=== PATIENT | female | born 1985 | race African-American/Black ===

== ENCOUNTER 2016-07-05 15:07 | Emergency (ER) | payer OTHER ==
[2016-07-05 15:12] VITALS: BMI 25.2
[2016-07-05] MEDS ORDERED: ACETAMINOPHEN 500 MG TABLET (FP) PO ONE (16:43)
[2016-07-05] MEDS ORDERED: ACETAMINOPHEN 325 MG TABLET (FP) ONE (16:45)
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
[2016-07-05 16:58] LABS: URINE APPEARANCE CLEAR; URINE BILIRUBIN NEGATIVE (NEGATIVE); URINE BLOOD NEGATIVE (NEGATIVE); URINE COLOR LTYELLOW; URINE GLUCOSE (UA) NEGATIVE (NEGATIVE); URINE KETONE TRACE (NEGATIVE); URINE LEUK ESTERASE NEGATIVE (NEGATIVE); URINE NITRITE NEGATIVE (NEGATIVE); URINE PROTEIN NEGATIVE (NEGATIVE); URINE UROBILINOGEN NEGATIVE E.U./dl (0.2-1.0)
--- NOTE | 2016-07-05 17:38 | PDOC ---
*Physical Exam - Vital Signs Last Vital Signs Temp Pulse Resp BP Pulse Ox 98 F 75 18 115/62 100 07/05/16 15:09 07/05/16 15:09 07/05/16 15:09 07/05/16 15:09 07/05/16 15:09 - Physical Exam Comments: 07/05/16 17:38 The patient was examined by [LABORATORY IMMUNOLOGIST Norma] under my direct supervision. I personally evaluated the patient. I concur with the above findings and the plan of care. ED Treatment Course - ADDITIONAL ORDERS Additional order review: Laboratory Results 07/05/16 16:50 Urine Color Ltyellow Urine Appearance Clear Urine pH 6.0 Urine Protein Negative Urine Glucose (UA) Negative Urine Ketones Trace H Urine Blood Negative Urine Nitrite Negative Urine Bilirubin Negative Urine Urobilinogen Negative Ur Leukocyte Esterase Negative - Medications Given in the ED: ED Medications Discontinued Medications Generic Name Dose Route Start Last Admin Trade Name Caydenq PRN Reason Stop Dose Admin Acetaminophen 975 mg 07/05/16 16:43 07/05/16 16:51 Tylenol - PO 07/05/16 16:44 975 mg ONCE ONE Administration *DC/Admit/Observation/Transfer Diagnosis at time of Disposition: Abdominal trauma, Second trimester - Referrals Referrals: Shannan Nicolas MD [Primary Care Provider] - - Patient Instructions Printed Discharge Instructions: DI for -- Discomforts and Remedies Additional Instructions: -Rest and stay well-hydrated -Take Tylenol as needed for pain -Follow up with your notereader on Friday -Return here for worsening pain, vaginal bleeding or spotting, or any other concerning symptoms - Post Discharge Activity Work/School Note: Back to Work
[2016-07-05 18:34] VITALS: BP 109/61; PULSE 80; TEMP 98.5
== END 2016-07-05 18:43 | disposition home or self-care (01) ==
LOC: JER 15:07
DX: O26.892 Other specified pregnancy related conditions, second trimester (principal); Z3A.15 15 weeks gestation of pregnancy; Y04.2XXA Assault by strike against or bumped into by another person, initial encounter; Y93.89 Activity, other specified; Y92.9 Unspecified place or not applicable; Y99.0 Civilian activity done for income or pay
CPT/HCPCS: 76816-TC; 81003; 99282-25

== ENCOUNTER 2019-03-27 04:19 | Emergency (ER) | payer OTHER ==
[2019-03-27 04:35] VITALS: TEMP 97.6; BMI 23.3
[2019-03-27] MEDS ORDERED: morphine CARPU-JECT 4 MG/1 ML DISP.SYRIN IVPUSH ONE (07:13)
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
[2019-03-27] MEDS ORDERED: morphine SULFATE 4 MG/ML VIAL ONE (07:16)
[2019-03-27] MEDS ORDERED: SODIUM CHLORIDE 0.9% 1000 ML INFUS.BAG IV ONE (07:56)
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
[2019-03-27] MEDS ORDERED: PROPOFOL 200 MG/20 ML VIAL IVPUSH ONE (09:35)
[2019-03-27] MEDS ORDERED: PROPOFOL 20 ML ONE (09:36)
[2019-03-27 12:07] VITALS: BP 116/92; PULSE 80
== END 2019-03-27 11:47 | disposition home or self-care (01) ==
LOC: JER 04:19
PROC: 0RSJXZZ Reposition Right Shoulder Joint, External Approach (ICD-10-PCS; principal; 2019-03-27)
PROC: 3E033NZ Introduction of Analgesics, Hypnotics, Sedatives into Peripheral Vein, Percutaneous Approach (ICD-10-PCS; 2019-03-27)
PROC: 3E023BZ Introduction of Anesthetic Agent into Muscle, Percutaneous Approach (ICD-10-PCS; 2019-03-27)
PROC: 2W3AXYZ Immobilization of Right Upper Arm using Other Device (ICD-10-PCS; 2019-03-27)
DX: S43.014A Anterior dislocation of right humerus, initial encounter (principal); W03.XXXA Other fall on same level due to collision with another person, initial encounter; Y93.89 Activity, other specified; Y92.59 Other trade areas as the place of occurrence of the external cause; Y99.8 Other external cause status
CPT/HCPCS: 23650; 29240; 73030-TC-RT-FY; 73060-TC-RT-FY; 73070-TC-RT-FY; 96374; 96375; 99284-25; J7030

== ENCOUNTER 2019-03-27 15:06 | Emergency (ER) | payer OTHER ==
[2019-03-27 15:13] VITALS: BP 125/70; PULSE 89; TEMP 98.4; BMI 24.7
--- NOTE | 2019-03-27 15:14 | PDOC ---
History of Present Illness - General Chief Complaint: Shoulder Dislocation Stated Complaint: REVISIT Time Seen by Provider: 03/27/19 15:13 History Source: Patient Exam Limitations: No Limitations - History of Present Illness Initial Comments: HPI: 33 y/o female presenting to [facility] ER for repeat imagining of her right shoulder. Pt was discharged from this department this morning after her right shoulder was dislocated and reduced. ED wet read was suggestive for a successful reduction and the pt was discharged. Radiology over-read the film as indeterminate. Pt was called and returned to the ED. Endorsed generalized shoulder pain. Medical Hx: - None Review of Systems: 6 point review of systems completed. All systems negative except as noted above. Physical Examination: Vital signs and nursing notes reviewed. Constitutional- Well-developed, well-nourished adult female in no acute distress but mild obvious discomfort. Head- Normocephalic. No obvious external signs of trauma. Cardiovascular / Chest- Regular rate. Respiratory- Breathing unlabored. Equal chest rise and fall. Neuro- Alert and oriented x4. Moving all four extremities spontaneously. MSK- Right upper extremity immobilized in shoulder immobilizer. Skin- Warm, dry, and intact. Psych- Affect- appropriate. Mood- normal. Speech was non-labored, non- pressured. MDM: Pts repeat radiograph unremarkable for dislocation or fracture. Given Oxycodone for pain relief. Will prescribe short course of Naproxen. Pt encouraged to continue to follow discharge instructions from last discharge. Past History - Past Medical History Allergies/Adverse Reactions: Allergies Allergy/AdvReac Type Severity Reaction Status Date / Time No Known Allergies Allergy Verified 03/27/19 06:53 Home Medications: Ambulatory Orders Naproxen [Naprosyn -] 500 mg PO BID PRN 7 Days #14 tablet 03/27/19 Anemia: No Asthma: No Cancer: No Cardiac Disorders: No CVA: No COPD: No CHF: No Dementia: No Diabetes: No GI Disorders: No Disorders: No HTN: No Hypercholesterolemia: No Kidney Stones: No Liver Disease: No Seizures: No Thyroid Disease: No - Surgical History Abdominal Surgery: No Appendectomy: No Cardiac Surgery: No Cholecystectomy: No Lung Surgery: No Neurologic Surgery: No Orthopedic Surgery: No - Reproductive History (#): 0 Endometriosis: No Uterine Fibroids: No - Immunization History Immunization Up to Date: Yes - Psycho Social/Smoking Cessation Hx Smoking History: Never smoked Have you smoked in the past 12 months: No Number of Cigarettes Smoked Daily: 2 Information on smoking cessation initiated: No 'Breaking Loose' booklet given: 07/26/15 Hx Alcohol Use: No Drug/Substance Use Hx: No Substance Use Type: None Hx Substance Use Treatment: No *Physical Exam - Vital Signs Last Vital Signs Temp Pulse Resp BP Pulse Ox 98.4 F 89 18 125/70 99 03/27/19 15:09 03/27/19 15:09 03/27/19 15:09 03/27/19 15:09 03/27/19 15:09 ED Treatment Course - RADIOLOGY Radiology Studies Ordered: Category Date Time Status SHOULDER-RIGHT [RAD] Stat Radiology 03/27/19 15:13 Ordered Discharge - Discharge Information Problems reviewed: Yes Clinical Impression/Diagnosis: Right shoulder pain Qualifiers: Chronicity: acute Qualified Code(s): M25.511 - Pain in right shoulder Condition: Good Disposition: HOME - Admission No - Additional Discharge Information Prescriptions: Naproxen [Naprosyn -] 500 mg PO BID PRN 7 Days #14 tablet PRN Reason: Pain - Follow up/Referral Referrals: Shannan Nicolas MD [Primary Care Provider] - - Patient Discharge Instructions Patient Printed Discharge Instructions: DI for Shoulder Dislocation Additional Instructions: Thank you for returning to the emergency department for the repeat xray. It did not show a shoulder dislocation. You were given an oxycodone for pain. Do not drink alcohol, drive, or operate heavy machinery for the next 12 hours. I have sent a prescription for a pain medication called Naproxen to your pharmacy. Take as directed on the package insert. Do not exceed the recommended dosage. Do not take with other NSAID medications such as Ibuprofen, Advil, or Motrin. Start with taking the Naproxen every 12 hours. If the pain becomes worse then add Tylenol (Acetaminophen) between doses of Naproxen. An example schedule is as follows: 9:00 am Naproxen 12:00 pm 1000mg Tylenol 6:00 pm 1000mg Tylenol 9:00 pm Naproxen 12:00 am 1000mg Tylenol etc. Please follow up with the orthopedic doctor as described on your other discharge paperwork. Return to the emergency department for new or worsening symptoms. Print Language: LAO - Post Discharge Activity
[2019-03-27] MEDS ORDERED: oxyCODONE HCL 5 MG TABLET PO ONE (15:27)
[2019-03-27] MEDS ORDERED: oxyCODONE HCL 5 MG TABLET ONE (15:36)
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
== END 2019-03-27 16:12 | disposition home or self-care (01) ==
LOC: JER 15:06
DX: Z00.00 Encounter for general adult medical examination without abnormal findings (principal)
CPT/HCPCS: 73030-TC-RT-FY; 99281-25

== ENCOUNTER 2019-03-29 09:37 | Emergency (ER) | payer OTHER ==
[2019-03-29 09:52] VITALS: BMI 24.0
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
[2019-03-29] MEDS ORDERED: morphine CARPU-JECT 4 MG/1 ML DISP.SYRIN IVPUSH ONE (10:10)
[2019-03-29] MEDS ORDERED: LIDOCAINE HCL 1%, 10 MG/ML (50 mL VIAL) IO ONE (10:24)
[2019-03-29] MEDS ORDERED: KETOROLAC TROMETHAMINE 30 MG/1 ML VIAL IM ONE (10:24)
[2019-03-29] MEDS ORDERED: KETOROLAC TROMETHAMINE 30 MG/1 ML VIAL ONE (10:25)
[2019-03-29] MEDS ORDERED: LIDOCAINE HCL 1%, 10 MG/ML (20ML VIAL) ONE (10:25)
[2019-03-29] MEDS ORDERED: HYDROmorphone HCL CARPU-JECT 2 MG/1 ML DISP.SYRIN IM ONE (10:26)
[2019-03-29] MEDS ORDERED: MIDAZOLAM HCL 2 MG/2 ML SINGLE DOSE VIAL IVPUSH ONE (10:31)
[2019-03-29] MEDS ORDERED: MIDAZOLAM HCL 2 MG/2 ML SINGLE DOSE VIAL ONE (10:39)
[2019-03-29 11:40] VITALS: BP 112/71; PULSE 109; TEMP 98.2
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
== END 2019-03-29 11:48 | disposition home or self-care (01) ==
LOC: JER 09:37
PROC: 0RSJXZZ Reposition Right Shoulder Joint, External Approach (ICD-10-PCS; principal; 2019-03-29)
DX: M24.411 Recurrent dislocation, right shoulder (principal)
CPT/HCPCS: 23650; 73030-TC-RT-FY; 96372; 96374; 99283-25

== ENCOUNTER 2019-09-03 06:14 | Emergency (ER) | payer OTHER ==
[2019-09-03 06:23] VITALS: PULSE 85; TEMP 97.8; BMI 22.6
[2019-09-03] MEDS ORDERED: ACETAMINOPHEN 500 MG TABLET (FP) PO ONE (07:32)
[2019-09-03] MEDS ORDERED: LIDOCAINE HCL 2% JELLY (30 ML/TUBE) TP ONE (07:33)
--- NOTE | 2019-09-03 07:46 | PDOC ---
Attending Attestation - Resident Resident Name: Etta Escalona - ED Attending Attestation I have performed the following: I have examined & evaluated the patient, The case was reviewed & discussed with the resident, I agree w/resident's findings & plan, Exceptions are as noted - HPI HPI: 33 yo F no significant PMH presents with LLQ pain, burning to the external vaginal tissue. She states she was recently treated for UTI (she states the drug name contains sulfa- possibly bactrim?), took a 4 day course, now having swelling and discomfort to the labia minora following intercourse with her boyfriend last night. Denies fever, chills, nausea, vomiting. No prior similar symptoms. Scant white discharge. - Physicial Exam PE: GENERAL: Awake, alert, and fully oriented, in no acute distress HEAD: No signs of trauma EYES: PERRLA, EOMI, sclera anicteric, conjunctiva clear ENT: Auricles normal inspection, hearing grossly normal, nares patent, oropharynx clear without exudates. Moist mucosa NECK: Normal ROM, supple, no lymphadenopathy, JVD, or masses LUNGS: Breath sounds equal, clear to auscultation bilaterally. No wheezes, and no crackles HEART: Regular rate and rhythm, normal S1 and S2, no murmurs, rubs or gallops ABDOMEN: Soft, nontender, normoactive bowel sounds. No guarding, no rebound. No masses EXTREMITIES: Normal range of motion, no edema. No clubbing or cyanosis. No cords, erythema, or tenderness NEUROLOGICAL: Cranial nerves II through XII grossly intact. Normal speech, normal gait. Motor and sensation intact SKIN: Warm, dry, normal turgor, no rashes or lesions noted. : Mild swelling of the labia minora, scant white discharge. No erythema. +Tenderness on light palpation of the labia minora. - Medical Decision Making Given the timing of her symptoms, this is most likely vulvovaginal candidiasis. Will give diflucan in ED. Also suspect the UTI has not completely resolved. Will send UCx, will give keflex. Will give her a prescription for additional dose of diflucan in case she does not resolve in 72 hours. Discharge - Discharge Information Problems reviewed: Yes Clinical Impression/Diagnosis: Yeast infection of the vagina UTI (urinary tract infection) Qualifiers: Urinary tract infection type: acute cystitis Hematuria presence: without hematuria Qualified Code(s): N30.00 - Acute cystitis without hematuria Condition: Stable Disposition: HOME - Additional Discharge Information Prescriptions: Fluconazole [Diflucan] 150 mg PO ONCE #1 tablet Cephalexin [Keflex] 500 mg PO BID #14 capsule - Follow up/Referral Referrals: Shannan Nicolas MD [Primary Care Provider] - Keiry Elizabeth MD [Staff Physician] - - Patient Discharge Instructions Patient Printed Discharge Instructions: DI for Vaginal Yeast Infection, DI for Urinary Tract Infection (UTI) Additional Instructions: Additional Instructions: Please return to the emergency department with any new or worsening symptoms or concerns. Please follow up with your Youth Accommodation Support Worker for re-evaluation and potential HSV testing. We have provided a referral for Dr Elizabeth if you need a new Logistics Program Manager doctor Please take the antibiotic Keflex twice a day for 7 days We have sent an additional antifungal medication called Diflucan to your pharmacy if you continue to have vaginal irritation with this antibiotic. You may take the Diflucan on 09/06/19 only if you are having additional symptoms - Post Discharge Activity
[2019-09-03] MEDS ORDERED: FLUCONAZOLE 150 MG TABLET PO ONE ×3 (07:49→07:53)
[2019-09-03] MEDS ORDERED: LIDOCAINE HCL 2% JELLY (5 ML/TUBE) ONE (07:51)
[2019-09-03] MEDS ORDERED: ACETAMINOPHEN 325 MG TABLET (FP) ONE (07:52)
--- NOTE | 2019-09-03 07:57 | PDOC ---
History of Present Illness <Lata Alejandro - Last Filed: 09/03/19 09:18> - History of Present Illness Initial Comments: 09/03/19 07:42 HPI: 33 y/o F with no pmh presenting with LLQ pain and external vaginal pain. LLQ pain x2 days with rad to left flank. Also reports burning on urination but not blood. Vaginal pain started yesterday following intercourse with partner. Reports vaginal swelling and pain and extreme pruritis. Reports uti 1month ago and finished bactrim. Denies fever, chills, chest pain, SOB. PMHx: as noted above ROS: as noted SHx: +tobacco use; +alcohol use; +MJ rec drugs Allergies: NKDA ROS: GENERAL/CONSTITUTIONAL: No fever or chills. No weakness. HEAD, EYES, EARS, NOSE AND THROAT: No change in vision. No ear pain or discharge. No sore throat. CARDIOVASCULAR: No chest pain or shortness of breath RESPIRATORY: No cough, wheezing, or hemoptysis. GASTROINTESTINAL: No nausea, vomiting, diarrhea or constipation. GENITOURINARY: +dysuria; no frequency, or change in urination. MUSCULOSKELETAL: No joint or muscle swelling or pain. No neck or back pain. SKIN: No rash NEUROLOGIC: No headache, vertigo, loss of consciousness, or change in strength/sensation. ENDOCRINE: No increased thirst. No abnormal weight change HEMATOLOGIC/LYMPHATIC: No anemia, easy bleeding, or history of blood clots. ALLERGIC/IMMUNOLOGIC: No hives or skin allergy. PE: GENERAL: Awake, alert, and fully oriented, no acute distress HEAD: No signs of trauma, normocephalic, atraumatic EYES: EOMI, sclera anicteric, conjunctiva clear ENT: Auricles normal inspection, hearing grossly normal, nares patent, oropharynx clear without exudates. Moist mucosa NECK: Normal ROM, no lymphadenopathy LUNGS: No increased work of breathing, symmetrical chest rise, clear to auscultation bilaterally, no wheezes, crackles or rhonchi HEART: Regular rate, regular rhythm, normal S1 and S2, no murmur, peripheral pulses 2+ and equal bilaterally. ABDOMEN: Soft, nondistended, nontender. No guarding, no rebound. No masses. No CVAT : mildly edematous labia minora with sticky secretions, no blood or discharge in the vault, os normal appearing MUSCULOSKELETAL: FROM NEUROLOGICAL: Cranial nerves II through XII grossly intact. Normal speech, normal gait, no focal sensorimotor deficits SKIN: Warm, Dry, normal turgor, no rashes or lesions noted <Etta Escalona - Last Filed: 09/03/19 20:25> - General Chief Complaint: Vaginal Sxs Stated Complaint: ABD PAIN Time Seen by Provider: 09/03/19 07:06 Past History <Lata Alejandro - Last Filed: 09/03/19 09:18> - Medical History Anemia: No Asthma: No Cancer: No Cardiac Disorders: No CVA: No COPD: No CHF: No Dementia: No Diabetes: No GI Disorders: No Disorders: No HTN: No Hypercholesterolemia: No Kidney Stones: No Liver Disease: No Seizures: No Thyroid Disease: No - Surgical History Abdominal Surgery: No Appendectomy: No Cardiac Surgery: No Cholecystectomy: No Lung Surgery: No Neurologic Surgery: No Orthopedic Surgery: No - Reproductive History (#): 0 Endometriosis: No Uterine Fibroids: No - Immunization History Immunization Up to Date: Yes - Psycho-Social/Smoking History Smoking History: Current some day smoker Have you smoked in the past 12 months: No Number of Cigarettes Smoked Daily: 2 Information on smoking cessation initiated: Yes 'Breaking Loose' booklet given: 07/26/15 - Substance Abuse Hx (Audit-C & DAST Scrn) How often the patient has a drink containing alcohol: Never Score: In Men: 4 or > Positive; In Women: 3 or > Positive: 0 Screen Result (Pos requires Nsg. Audit-10AR): Negative In the last yr the pt used illegal drug/Rx for NonMed reason: No Score: Yes response is considered Positive: 0 Screen Result (Positive result requires Nsg. DAST-10): Negative <Etta Escalona - Last Filed: 09/03/19 20:25> - Medical History Allergies/Adverse Reactions: Allergies Allergy/AdvReac Type Severity Reaction Status Date / Time No Known Allergies Allergy Verified 09/03/19 06:23 Home Medications: Ambulatory Orders Cephalexin [Keflex] 500 mg PO BID #14 capsule 09/03/19 Fluconazole [Diflucan] 150 mg PO ONCE #1 tablet 09/03/19 *Physical Exam - Vital Signs Last Vital Signs Temp Pulse Resp BP Pulse Ox 97.8 F 85 18 96/57 L 96 09/03/19 06:18 09/03/19 06:18 09/03/19 06:18 09/03/19 06:18 09/03/19 06:18 <Lata Alejandro - Last Filed: 09/03/19 09:18> - Vital Signs Last Vital Signs Temp Pulse Resp BP Pulse Ox 97.8 F 85 18 96/57 L 96 09/03/19 06:18 09/03/19 06:18 09/03/19 06:18 09/03/19 06:18 09/03/19 06:18 <Etta Escalona - Last Filed: 09/03/19 20:25> ED Treatment Course - ADDITIONAL ORDERS Additional order review: Laboratory Results 09/03/19 09/03/19 07:42 07:42 Urine Color Yellow Urine Appearance Clear Urine pH 6.0 Ur Specific [place] 1.034 Urine Protein Trace Urine Glucose (UA) Negative Urine Ketones Trace H Urine Blood Negative Urine Nitrite Negative Urine Bilirubin Negative Urine Urobilinogen 1.0 Ur Leukocyte Esterase 1+ H Urine WBC (Auto) 27 Urine RBC (Auto) 13 Urine Casts (Auto) 7 U Pathogenic Cast Auto None seen U Epithel Cells (Auto) >36 U Sm Round Cell (Auto) None seen Urine Bacteria (Auto) 47.9 Urine HCG, Qual Negative - Medications Given in the ED: ED Medications Discontinued Medications Generic Name Dose Route Start Last Admin Trade Name Ulises PRN Reason Stop Dose Admin Acetaminophen 975 mg 09/03/19 07:32 09/03/19 07:58 Tylenol - PO 09/03/19 07:33 975 mg ONCE ONE Administration Cephalexin HCl 500 mg 09/03/19 08:43 09/03/19 08:45 Keflex - PO 09/03/19 08:44 500 mg ONCE ONE Administration Fluconazole 150 mg 09/03/19 07:49 09/03/19 07:58 Fluconazole PO 09/03/19 07:50 150 mg ONCE ONE Administration Lidocaine HCl 1 applic 09/03/19 07:33 09/03/19 07:58 Xylocaine 2% Jelly TP 09/03/19 07:34 1 applic ONCE ONE Administration <Lata Alejandro - Last Filed: 07/03/20 09:18> Medical Decision Making - Medical Decision Making 09/03/19 20:23 33 y/o F with no pmh presenting with LLQ pain and external vaginal pain after taking bactrim recently. VSS, AF. PE with ?edema of labia minora. -ua, ucx, GC -tylenol, lidocaine jelly, diflucan 09/03/19 20:23 -will treat for uti and send script to pharmacy all questions asnwered referred to Piper Installer for further eval of possible HSV and genitalia pain <Etta Escalona - Last Filed: 09/03/19 20:25> Discharge <Lata Alejandro - Last Filed: 09/03/19 09:18> - Discharge Information Problems reviewed: Yes <Etta Escalona - Last Filed: 09/03/19 20:25> - Discharge Information Clinical Impression/Diagnosis: Yeast infection of the vagina UTI (urinary tract infection) Qualifiers: Urinary tract infection type: acute cystitis Hematuria presence: without he maturia Qualified Code(s): N30.00 - Acute cystitis without hematuria Condition: Stable Disposition: HOME - Additional Discharge Information Prescriptions: Fluconazole [Diflucan] 150 mg PO ONCE #1 tablet Cephalexin [Keflex] 500 mg PO BID #14 capsule - Follow up/Referral Referrals: Shannan Nicolas MD [Primary Care Provider] - Keiry Elizabeth MD [Staff Physician] - - Patient Discharge Instructions Patient Printed Discharge Instructions: DI for Vaginal Yeast Infection, DI for Urinary Tract Infection (UTI) Additional Instructions: Additional Instructions: Please return to the emergency department with any new or worsening symptoms or concerns. Please follow up with your Recovery Auditor for re-evaluation and potential HSV testing. We have provided a referral for Dr Elizabeth if you need a new Piper Installer doctor Please take the antibiotic Keflex twice a day for 7 days We have sent an additional antifungal medication called Diflucan to your pharmacy if you continue to have vaginal irritation with this antibiotic. You may take the Diflucan on 09/06/19 only if you are having additional symptoms - Post Discharge Activity
[2019-09-03 08:31] LABS: EPI CELLS >36 /uL (0-25.1); HYALINE CASTS 7 /uL (0-3.1); URINE APPEARANCE CLEAR; URINE BILIRUBIN NEGATIVE (NEGATIVE); URINE COLOR YELLOW; URINE GLUCOSE (UA) NEGATIVE (NEGATIVE); URINE KETONE TRACE (NEGATIVE); URINE LEUK ESTERASE 1+ (NEGATIVE); URINE NITRITE NEGATIVE (NEGATIVE); URINE PROTEIN TRACE (NEGATIVE); URINE RBC 13 /uL (0-23.9); URINE WBC 27 /uL (0-25.8)
[2019-09-03] MEDS ORDERED: CEPHALEXIN MONOHYDRATE 500 MG CAPSULE (UD) PO ONE (08:43)
[2019-09-03] MEDS ORDERED: CEPHALEXIN MONOHYDRATE 500 MG CAPSULE (UD) ONE (08:46)
[2019-09-03 08:52] LABS: URINE BACTERIA 47.9 /uL (0-1359)
[2019-09-03 09:36] VITALS: BP 100/62
--- NOTE | 2019-09-05 12:10 | PDOC ---
Patient Follow-up (Call Back) - Post ED Follow - Up Condition at time of discharge: Stable Disposition at time of original discharge: HOME - Disposition Additional Instructions/Notes: Patient wanted a new pharmacy secondary to closure of her pharmacy. New prescription for Keflex 500 mg twice daily x7 days and Bactrim 150 mg x 1 dose was sent to pharmacy [facility]
== END 2019-09-03 09:36 | disposition home or self-care (01) ==
LOC: JER 06:14
DX: N30.00 Acute cystitis without hematuria (principal); B37.3 Candidiasis of vulva and vagina
CPT/HCPCS: 36415; 81003; 84703; 87086; 87491; 87591; 99283-25

== ENCOUNTER 2019-10-19 16:10 | Emergency (ER) | payer OTHER ==
[2019-10-19] MEDS ORDERED: DIPHTH,PERTUSS(ACELL),TET 0.5 ML DISP.SYRIN IM ONE ×2 (16:14→16:24)
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
[2019-10-19 16:19] VITALS: BP 122/71; PULSE 99; TEMP 98; BMI 22.6
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
== END 2019-10-19 16:40 | disposition home or self-care (01) ==
LOC: JER 16:10 → JERFT 16:10
PROC: 3E0234Z Introduction of Serum, Toxoid and Vaccine into Muscle, Percutaneous Approach (ICD-10-PCS; principal; 2019-10-19)
DX: S00.01XA Abrasion of scalp, initial encounter (principal)
CPT/HCPCS: 90715; 99284-25

== ENCOUNTER 2020-07-01 12:34 | Emergency (ER) | payer OTHER ==
[2020-07-01 12:43] VITALS: BP 117/70; PULSE 88; TEMP 98.1; BMI 23.6
[2020-07-01] MEDS ORDERED: LIDOCAINE HCL 1%, 10 MG/ML (50 mL VIAL) INF ONE (12:50)
[2020-07-01] MEDS ORDERED: LIDOCAINE HCL 1%, 10 MG/ML (20ML VIAL) ONE (12:54)
== END 2020-07-01 14:06 | disposition home or self-care (01) ==
LOC: JER 12:34
DX: M24.411 Recurrent dislocation, right shoulder (principal)
CPT/HCPCS: 73030-TC-RT-FY; 99283-25

== ENCOUNTER 2020-08-25 16:46 | Emergency (ER) | payer OTHER ==
[2020-08-25 16:59] VITALS: BMI 25.9
[2020-08-25 18:38] LABS: BASO % 0.5 % (0-2.0); EOS % 0.2 % (0-4.5); HEMATOCRIT 32.1 % (32.4-45.2); HEMOGLOBIN 10.9 GM/dL (10.7-15.3); LYMPH % 20.4 % (8-40); MCH 32.2 pg (25.7-33.7); MCHC 33.8 g/dl (32.0-36.0); MEAN CELL VOLUME 95.2 fl (80-96); MEAN PLT VOLUME 8.4 fl (7.5-11.1); MONO % 8.2 % (3.8-10.2); NEUT % 70.7 % (42.8-82.8); PLATELET COUNT 330 10^3/uL (134-434); RBC 3.38 M/mm3 (3.60-5.2); RDW 13.3 % (11.6-15.6); WHITE BLOOD COUNT 13.1 K/mm3 (4.0-10.0)
[2020-08-25 18:58] LABS: ALBUMIN 3.6 g/dl (3.4-5.0); BLOOD UREA NITROGEN 9.8 mg/dL (7-18); CALCIUM 8.9 mg/dL (8.5-10.1)
[2020-08-25 19:02] LABS: CREATININE 0.6 mg/dL (0.55-1.3)
[2020-08-25 19:04] LABS: BILIRUBIN,TOTAL 0.2 mg/dL (0.2-1); TOT PROT 7.2 g/dl (6.4-8.2)
[2020-08-25 19:05] VITALS: BP 108/58; PULSE 80; TEMP 98.2
[2020-08-25 19:13] LABS: URINE APPEARANCE CLEAR; URINE BILIRUBIN NEGATIVE (NEGATIVE); URINE COLOR YELLOW; URINE GLUCOSE (UA) NEGATIVE (NEGATIVE); URINE KETONE TRACE (NEGATIVE); URINE LEUK ESTERASE NEGATIVE (NEGATIVE); URINE NITRITE NEGATIVE (NEGATIVE); URINE PROTEIN NEGATIVE (NEGATIVE); URINE UROBILINOGEN 0.2 mg/dL (0.2-1.0)
== END 2020-08-25 19:48 | disposition home or self-care (01) ==
LOC: JER 16:46
DX: O26.852 Spotting complicating pregnancy, second trimester (principal); Z3A.16 16 weeks gestation of pregnancy
CPT/HCPCS: 36415; 76810-TC; 80053; 81003; 84702; 85025; 99284-25

== ENCOUNTER 2021-07-27 11:12 | Emergency (ER) | payer OTHER ==
[2021-07-27 11:26] VITALS: TEMP 98.3; BMI 26.9
[2021-07-27] MEDS ORDERED: LACTATED RINGERS SOLUTION 1000 ML INFUS.BAG IV ONE ×4 (12:08→14:36)
[2021-07-27 12:43] LABS: BASO % 1.6 % (0-2.0); EOS % 0.1 % (0-4.5); HEMATOCRIT 36.5 % (32.4-45.2); HEMOGLOBIN 12.6 GM/dL (10.7-15.3); LYMPH % 23.1 % (8-40); MCH 32.4 pg (25.7-33.7); MCHC 34.4 g/dl (32.0-36.0); MEAN CELL VOLUME 94.3 fl (80-96); MEAN PLT VOLUME 9.1 fl (7.5-11.1); MONO % 7.7 % (3.8-10.2); NEUT % 67.5 % (42.8-82.8); PLATELET COUNT 274 10^3/uL (134-434); RBC 3.87 M/mm3 (3.60-5.2); RDW 13.8 % (11.6-15.6); WHITE BLOOD COUNT 6.8 K/mm3 (4.0-10.0)
[2021-07-27 12:44] LABS: PH,URINE 6.5 (5.0-8.0); URINE APPEARANCE CLEAR; URINE BILIRUBIN NEGATIVE (NEGATIVE); URINE COLOR YELLOW; URINE GLUCOSE (UA) 3+ (NEGATIVE); URINE KETONE TRACE (NEGATIVE); URINE LEUK ESTERASE NEGATIVE (NEGATIVE); URINE NITRITE NEGATIVE (NEGATIVE); URINE PROTEIN NEGATIVE (NEGATIVE); URINE UROBILINOGEN 0.2 mg/dL (0.2-1.0)
[2021-07-27 12:49] LABS: VENOUS BASE EXCESS -1.2 mmol/L (-2-2); VENOUS O2 SATURATION 87.7 % (70-80); VENOUS PCO2 44.3 mmHg (38-52); VENOUS PH 7.359 (7.310-7.410)
[2021-07-27 13:02] LABS: CHLORIDE 95 mmol/L (98-107); SODIUM 130 mmol/L (136-145)
[2021-07-27 13:04] LABS: CALCIUM 9.5 mg/dL (8.5-10.1)
[2021-07-27 13:05] LABS: ALBUMIN 4.2 g/dl (3.4-5.0); ANION GAP 9 MMOL/L (8-16); BLOOD UREA NITROGEN 19.2 mg/dL (7-18); CO2 26 mmol/L (21-32); MAGNESIUM 2.4 mg/dL (1.8-2.4)
[2021-07-27 13:08] LABS: CREATININE 1.1 mg/dL (0.55-1.3); SGOT/AST 13 U/L (15-37); SGPT/ALT 26 U/L (13-61)
[2021-07-27 13:09] LABS: BILIRUBIN,TOTAL 0.4 mg/dL (0.2-1)
[2021-07-27 13:10] LABS: ALK PHOS 119 U/L (45-117); GLUCOSE,RANDOM 573 mg/dL (74-106); TOT PROT 7.8 g/dl (6.4-8.2)
[2021-07-27] MEDS ORDERED: metFORMIN HCL 500 MG TABLET (FP) PO ONE (15:52)
[2021-07-27] MEDS ORDERED: metFORMIN HCL 500 MG TABLET (FP) ONE (15:57)
[2021-07-27 16:03] VITALS: BP 128/76; PULSE 84
== END 2021-07-27 16:03 | disposition home or self-care (01) ==
LOC: JER 11:12
DX: E13.65 Other specified diabetes mellitus with hyperglycemia (principal)
CPT/HCPCS: 36415; 71046-TC-FY; 80053; 81003; 82010; 82803; 82962; 83735; 84703; 85025; 87086; 93005; 93010; 99285-25

== ENCOUNTER 2022-09-06 18:06 | Emergency (ER) | payer OTHER ==
[2022-09-06 18:13] VITALS: BP 109/63; PULSE 89; RESP 18; TEMP 97; BMI 20.6
[2022-09-06 19:43] LABS: BASO % 0.7 % (0-2.0); EOS % 0.8 % (0-4.5); HEMATOCRIT 41.6 % (32.4-45.2); HEMOGLOBIN 13.6 GM/dL (10.7-15.3); LYMPH % 39.6 % (8-40); MCH 31.3 pg (25.7-33.7); MCHC 32.7 g/dl (32.0-36.0); MEAN CELL VOLUME 95.9 fl (80-96); MONO % 9.4 % (3.8-10.2); NEUT % 49.5 % (42.8-82.8); PLATELET COUNT 337 10^3/uL (134-434); RBC 4.34 M/mm3 (3.60-5.2); RDW 13.8 % (11.6-15.6); WHITE BLOOD COUNT 7.8 K/mm3 (4.0-10.0)
[2022-09-06 19:55] LABS: POTASSIUM 4.2 mmol/L (3.5-5.1)
[2022-09-06 19:57] LABS: CALCIUM 9.8 mg/dL (8.5-10.1)
[2022-09-06 19:58] LABS: ALBUMIN 3.9 g/dl (3.4-5.0); BLOOD UREA NITROGEN 9.3 mg/dL (7-18); MAGNESIUM 2.2 mg/dL (1.8-2.4)
[2022-09-06 19:59] LABS: HCG,QUALITATIVE URINE NEGATIVE
[2022-09-06 20:01] LABS: CREATININE 0.7 mg/dL (0.55-1.3)
[2022-09-06 20:02] LABS: BILIRUBIN,TOTAL 0.2 mg/dL (0.2-1); TOT PROT 7.5 g/dl (6.4-8.2)
[2022-09-06 20:04] LABS: EPI CELLS 15 /uL (0-25.1); HYALINE CASTS 0 /uL (0-3.1); URINE APPEARANCE CLOUDY; URINE BACTERIA 19 /uL (0-1359); URINE BILIRUBIN NEGATIVE (NEGATIVE); URINE COLOR ORANGE; URINE GLUCOSE (UA) NEGATIVE (NEGATIVE); URINE KETONE TRACE (NEGATIVE); URINE LEUK ESTERASE TRACE (NEGATIVE); URINE NITRITE NEGATIVE (NEGATIVE); URINE PROTEIN 1+ (NEGATIVE); URINE RBC 9452 /uL (0-23.9); URINE WBC 17 /uL (0-25.8)
[2022-09-06] MEDS ORDERED: CEFTRIAXONE 1 GM/50 ML BAG ONE (20:24)
[2022-09-06] MEDS ORDERED: CEFTRIAXONE 1,000 MG in DEXTROSE 5%-WATER - 50 ML IVPB ONE (20:25)
== END 2022-09-06 20:55 | disposition home or self-care (01) ==
LOC: JER 18:06
DX: N30.00 Acute cystitis without hematuria (principal); R30.0 Dysuria; R30.9 Painful micturition, unspecified; R35.0 Frequency of micturition; R39.15 Urgency of urination; E86.0 Dehydration; R10.32 Left lower quadrant pain
CPT/HCPCS: 36415; 80053; 81003; 82962; 83735; 84703; 85025; 87077; 87086; 99284-25